=== PATIENT | female | born 1945 | race Caucasian/White ===

== ENCOUNTER 2017-03-09 09:52 | Day surgery (SDC) | payer MEDICARE, OTHER ==
[~2017-03-09] VITALS: Ht 170.2 cm; Wt 107.3 kg
--- NOTE | ~2017-03-09 | CATH ---
Cardiac Diagnostic Report Demographics Patient Name DELORES NDIAYE Gender Female R Date of 1945 Age 71 year(s) Patient Number [id number] Date of Study 03/09/2017 Visit Number [id number] Room Number Corporate ID Ht 175.26 cm Wt 111.58 kg Accession Number [id number] BSA 2.26 m kg/m Referring Kike Arreguin Primary Physician Physician A Performing Marina Soliman MD Secondary Physician Physician Diagnostic Marina Soliman MD Assisting Physician Physician Interventional Physician Silk Spotter Physician Findings and Conclusions Diagnostic Findings and Conclusion Normal coronary arteries. Normal LVEDP. Diagnostic Recommendations Medical management. Procedure Description The patient was brought to the diagnostic cardiac catheterization laboratory in the fasting, non-sedated state. Informed consent was obtained in the written and verbal form after the risks and benefits were explained. The patient had no further questions and agreed to proceed. The planned puncture-incision site(s) were clipped and prepped with ChloraPrep and draped in the usual sterile manner. Conscious sedation, supplemental oxygen, and pain control medications were delivered by a registered nurse under physician guidance. Surface ECG rhythm, blood pressure measurement, and pulse oximetry were monitored throughout the procedure. Arterial access. The right radial access site was infiltrated with lidocaine. The vessel was entered with the Seldinger technique. A 6F sheath was advanced into the vessel and used for catheter placement. Left heart catheterization. A JR4 catheter was advanced across the aortic valve to the left ventricle under fluoroscopic guidance. Resting hemodynamics were obtained. Selective right coronary angiography. A PRC catheter was advanced into the right coronary vessel ostium under fluoroscopic guidance. Contrast was injected by hand. Images were obtained in multiple projections. Selective left coronary angiography. A catheter was advanced into the left coronary vessel ostium under Fluoroscopic guidance. Contrast was injected by hand. Images were obtained in multiple projections. Hemostasis: The sheath was removed and a TR Band was placed. Hemostasis was achieved. The patient was transferred to a regular nursing floor via cart accompanied by a nurse. The patient left the laboratory in stable condition. Diagnostic Cath Status: Elective Procedure Procedure Type Diagnostic procedure:Angiography:, Coronary Angios w/[facility] Indications: Dyspnea, Hyperlipidemia, Hypertension, Diabetes, Positive Nuclear: Intermediate and Family history of coronary artery disease. The procedure was explained in detail to the patient. Risks, complications and alternative treatments were reviewed. Written consent was obtained. Medications Reviewed with Patient prior to Procedure. Complications: No Complication. Angiographic Findings Dominance: Left Cardiac Arteries and Lesion Findings LMCA: Normal (0% Stenosis). LAD: Normal (0% Stenosis). LCx: Normal (0% Stenosis). RCA: Normal (0% Stenosis). Procedure Data Procedure Date Date: 03/09/2017Start: 01:45 PMEnd: 02:16 PM Entry Locations - Percutaneous access was performed through the Right Radial artery (Primary location). A 6 Fr sheath was inserted. Hemostasis was successfully obtained using a TR band. Procedure Medications Order and Administration + + +-------+--------+ !Time !Medication !Dosage !Route ! + + +-------+--------+ 03/09/2017 !Oxygen !2 l/min!NC ! !01:42 PM ! ! ! ! + + +-------+--------+ 03/09/2017 !Versed !2 mg ! ! !01:42 PM ! ! ! ! + + +-------+--------03/09/2017 !Fentanyl !25 mcg !I.V. ! !01:42 PM ! ! ! ! + + +-------+--------+ !03/09/2017 !Sodium Chloride !10 ml !I.V. ! !01:43 PM ! ! ! ! + + +-------+--------+ !03/09/2017 !Versed !1 mg ! ! !01:43 PM ! ! ! ! + + +-------+--------+ !03/09/2017 !Oxygen !4 l/min!NC ! !01:45 PM ! ! ! ! + + +-------+--------+ !03/09/2017 !SF Radial Cocktail: 200mcg Nitro, 2.5 mg ! !I.A. ! !01:53 PM !Verapamil, 5000u Heparin ! ! ! + + +-------+--------+ !03/09/2017 !Versed !1 mg ! ! !02:01 PM ! ! ! ! + + +-------+--------+ !03/09/2017 !Fentanyl !25 mcg !I.V. ! !02:01 PM ! ! ! ! + + +-------+--------+ Devices Used - A6 FrCATH 6F FR4 CATHETER 100CMwas used for:LeftsideLV Pressures. - A6 FrCATH 6F PRC CATHETER 100CMwas used for:RightsideCoronary Angios. - A6 FrCATH 6FR FL3.5 CATHETER 100CMwas used for:LeftsideCoronary Angios. Contrast Material - Isovue 24647 ml Fluoroscopy Time: Diagnostic: 4:54 minutes. Total: 4:54 minutes. Fluoroscopy Dose: Diagnostic: 788 mGy. Total: 788 mGy. Estimated Blood Loss: 7 ml. Medical History Performed Procedures and Imaging Results - Stress testing with SPECT MPIwas performed on 02/01/2017. Results were: Positive. Risk/Extent of ischemia was: Intermediate risk. Allergies - Codiene. - Penicillin. - Sulfa. Risk Factors The patient risk factors include:peripheral arterial disease, treated hypercholesterolemia, treated hypertension, orally-treated diabetes mellitus, last creatinine: 2.4 mg/dl, creatinine clearance: 38.42 ml/min, dyslipidemia and Current/Recent(w/in 1 year) tobacco use. Admission Data Admission Date: 03/09/2017 Admission Time: 09:52 AM Insurance Payors: Medicare. Clinical Evaluation Leading to Procedure Diagnosed on 03/09/2017 12:00 AM. - The patient's CAD presentation was assessed as: Symptom unlikely to be ischemic. - There were no anginal symptoms. - The patient has been in a state of heart failure within the past two weeks. - The patient's heart failure status was assessed as NYHA Class II, with CHF symptoms of RAMOS. Hemodynamics Condition: Rest O2 Consumption: Estimated: 216.55Heart Rate: 80 bpm Pressures (mmHg) +-----+ + !Site !Pressure ! +-----+ + !LV !111/2 ,4 ! +-----+ + !LV !114/1 ,7 ! +-----+ + !AO !119/70 (92) ! +-----+ + !LV !120/1 ,9 ! +-----+ + !AO !114/73 (91) ! +-----+ + Valve Gradients and Areas + +---------+---------+---------+ +---------+ + !Valve !Peak !Mean !Area !Index !Flow !Source ! + +---------+---------+---------+ +---------+ + !Aortic !0 !0 ! ! ! ! ! + +---------+---------+---------+ +---------+ + !Aortic !0 !0 ! ! ! ! ! + +---------+---------+---------+ +---------+ + Shunts Oxygen Values O2 Consumption 216.55 Discharge Data Discharge Date: 03/09/2017 Hospital Status: Outpatient Signatures
[~2017-03-09 09:52] MED LIST: ACTOS DPS30 MG PO; ASA CHILDREN'S81 MG PO; ASCORBIC ACID500 MG PO; BACTROBAN OINT.22 GM TP; COUMADIN2.5 MG PO; FEOSOL-DPS325 MG PO; GLUCOSAMINE/CHO1 TAB PO; HUMALOG100 UNIT/1 SQ; LOPID DPS600 MG PO; LOTRISONE DPS45 GM TP; MAALOX DPS30 ML PO; MYCOSTATIN PWD15 GM TP; NORCO 5-325 TA1 EACH PO; NUCYNTA50 MG PO; NYSTATIN1 EAC1 TP; OCEAN NASAL MIS45 ML NS; PERCOCET 10-321 EACH PO; PRESERVISION A1 EAC2 PO; PRILOSEC DPS20 MG PO; PROCRIT10000 UNIT SQ; STIOLTO RESPIMAT4 GM IH; TAMBOCOR DPS50 MG PO; TYLENOL DPS325 MG PO; TYLENOL EXTRA500 M1 PO; VITAMIN D31000 UNI1 PO; VOLTAREN 1% GE100 GM TP; WELCHOL625 MG PO
[2017-04-13] MEDS ORDERED: LOPID DPS600 MG PO (17:04)
[2017-04-13] MEDS ORDERED: ACTOS DPS30 MG PO (17:05)
[2017-04-13] MEDS ORDERED: PRESERVISION A1 EAC1 PO (17:06)
[2017-04-13] MEDS ORDERED: VITAMIN C250 MG PO (17:06)
[2017-04-13] MEDS ORDERED: ASA CHILDREN'S81 MG PO (17:06)
[2017-04-13] MEDS ORDERED: CENTRUM SILVER1 EAC1 PO (17:07)
[2017-04-13] MEDS ORDERED: PRILOSEC DPS20 MG PO (17:07)
[2017-04-13] MEDS ORDERED: COUMADIN2.5 MG PO (17:07)
[2017-04-13] MEDS ORDERED: VITAMIN D-32000 UNI1 PO (17:07)
[2017-04-13] MEDS ORDERED: SOD BICARB TAB650 MG PO (17:08)
[2017-04-13] MEDS ORDERED: DUONEB DPS3 ML IH (17:09)
[2017-04-13] MEDS ORDERED: ROCALTROL DP0.25 MCG PO (17:09)
[2017-04-13] MEDS ORDERED: BACTROBAN OINT.22 GM TP (17:10)
[2017-04-13] MEDS ORDERED: AFRIN15 ML NS (17:10)
[2017-04-13] MEDS ORDERED: KENALOG OINT. 015 GM TP (17:11)
[2017-04-13] MEDS ORDERED: MYCOSTATIN PWD15 GM TP ×2 (17:11→17:14)
[2017-04-13] MEDS ORDERED: LOTRISONE CREAM45 GM TP (17:11)
[2017-04-13] MEDS ORDERED: NORCO 7.5-3251 EACH PO (17:12)
[2017-04-13] MEDS ORDERED: BUMEX DPS1 MG PO (17:12)
[2017-04-13] MEDS ORDERED: OCEAN NASAL MIS45 ML NS (17:12)
[2017-04-13] MEDS ORDERED: GLUCOPHAGE1000 MG PO (17:12)
[2017-04-13] MEDS ORDERED: FEOSOL-DPS325 MG PO (17:13)
[2017-04-13] MEDS ORDERED: LOPRESSOR DPS12.5 MG PO (17:13)
[2017-04-13] MEDS ORDERED: MAG-OX400 MG PO ×2 (17:13→17:14)
[2017-04-30] MEDS ORDERED: PRILOSEC DPS20 MG PO (18:09)
[2017-04-30] MEDS ORDERED: NORCO 7.5-3251 EACH PO (18:10)
[2017-04-30] MEDS ORDERED: ANTIFUNGAL15 GM TP (18:12)
[2017-04-30] MEDS ORDERED: COUMADIN6 MG PO (18:13)
[2017-04-30] MEDS ORDERED: CEFTIN DPS500 MG PO (18:14)
[2017-05-17] MEDS ORDERED: DELTASONE DPS1 MG PO (12:02)
[2017-05-17] MEDS ORDERED: MUCOMYST 20% IH (12:03)
[2017-05-19] MEDS ORDERED: TYLENOL DPS325 MG PO (14:57)
[2017-05-19] MEDS ORDERED: COLACE-DPS100 MG PO (14:58)
[2017-05-19] MEDS ORDERED: NORMAL SALINE FL5 ML IV (14:59)
[2017-07-25] MEDS ORDERED: BACTROBAN OINT.22 GM TP (19:12)
[2017-07-25] MEDS ORDERED: AFRIN-DPS15 ML NS (19:12)
[2017-07-25] MEDS ORDERED: BROVANA15 MCG/2 M IH (19:13)
[2017-07-25] MEDS ORDERED: BUMEX DPS1 MG PO (19:14)
[2017-07-25] MEDS ORDERED: KLOR-CON M2020 ME1 PO (19:15)
[2017-07-25] MEDS ORDERED: FEOSOL-DPS325 MG PO (19:15)
[2017-07-25] MEDS ORDERED: DUONEB DPS3 ML IH (19:15)
[2017-07-25] MEDS ORDERED: LOPRESSOR DPS50 MG PO (19:16)
[2017-07-25] MEDS ORDERED: LOTRISONE CREAM45 GM TP (19:17)
[2017-07-25] MEDS ORDERED: MAALOX DPS30 ML PO (19:17)
[2017-07-25] MEDS ORDERED: MUCINEX600 MG PO (19:18)
[2017-07-25] MEDS ORDERED: MAG-OX400 MG PO (19:18)
[2017-07-25] MEDS ORDERED: MYCOSTATIN PWD15 GM TP (19:19)
[2017-07-25] MEDS ORDERED: PRESERVISION A1 EAC2 PO (19:19)
[2017-07-25] MEDS ORDERED: PULMICORT0.5 MG/21 IH (19:19)
[2017-07-25] MEDS ORDERED: TRIAMCINOLONE A15 GM TP (19:20)
[2017-07-25] MEDS ORDERED: CALCIUM CARBON500 MG PO (19:21)
[2017-07-25] MEDS ORDERED: TYLENOL EXTRA500 M1 PO (19:21)
[2017-07-25] MEDS ORDERED: CENTRUM SILVER1 EAC1 PO (19:22)
[2017-07-25] MEDS ORDERED: ASA CHILDREN'S81 MG PO (19:22)
[2017-07-25] MEDS ORDERED: COUMADIN DPS3 MG PO ×2 (19:22→19:23)
[2017-07-25] MEDS ORDERED: VITAMIN C250 MG PO (19:23)
[2017-07-25] MEDS ORDERED: ZOFRAN4 MG PO (19:23)
[2017-07-25] MEDS ORDERED: HYDROCODON-ACE1 EAC4 PO (19:24)
[2017-07-25] MEDS ORDERED: PEPCID DPS20 MG PO (19:25)
[2017-07-25] MEDS ORDERED: ANALGESIC BALM30 GM TP (19:25)
[2017-07-25] MEDS ORDERED: SPORTS CREAM85 GM TP (19:26)
== END 2017-03-09 17:40 | disposition home or self-care (01) ==
LOC: SSS 09:52
PROC: 4A023N7 Measurement of Cardiac Sampling and Pressure, Left Heart, Percutaneous Approach (ICD-10-PCS; principal; 2017-03-09)
DX: R93.1 Abnormal findings on diagnostic imaging of heart and coronary circulation (principal); R06.00 Dyspnea, unspecified; I48.0 Paroxysmal atrial fibrillation; E78.5 Hyperlipidemia, unspecified; I73.9 Peripheral vascular disease, unspecified; E11.9 Type 2 diabetes mellitus without complications; M19.90 Unspecified osteoarthritis, unspecified site; E55.9 Vitamin D deficiency, unspecified; D64.9 Anemia, unspecified; F17.210 Nicotine dependence, cigarettes, uncomplicated; Z82.49 Family history of ischemic heart disease and other diseases of the circulatory system; Z88.0 Allergy status to penicillin; Z88.2 Allergy status to sulfonamides; Z88.5 Allergy status to narcotic agent; Z90.49 Acquired absence of other specified parts of digestive tract; Z98.51 Tubal ligation status; Z90.710 Acquired absence of both cervix and uterus; Z79.899 Other long term (current) drug therapy; Z98.890 Other specified postprocedural states

== ENCOUNTER 2017-04-05 08:50 | Inpatient (IN) | payer MEDICARE, OTHER ==
[~2017-04-05] VITALS: Ht 170.2 cm; Wt 107.7 kg
--- NOTE | ~2017-04-05 | ECH ---
Transthoracic Echocardiography Report (TTE) Demographics Patient Name ZELDA ESTRELLA Date of Study 04/06/2017 R Patient Number [id number] Visit Number [id number] Date of 1945 Room Number 403 Accession Number [id number] Gender Female Age 71 year(s) Referring Cheryl Agustin Radiographer Mammographer Amalia Romo [facility] Physician Kike Anderson Physician Interpreting Cheryl REYNOSO [employer] Intern Physician Vamsi Supervising Ordering Physician Joaquim Rawls MD/P Nurse Stress Lodging Facilities Manager Conclusions Contractility Score Summary Normal Left Ventricular contractility was noted. Summary Technically fair exam. The estimated left ventricular ejection fraction is 50-55% in underlying atrial fibrillation. The left ventricle is moderately dilated . Mild left ventricular hypertrophy. Diastolic function indeterminate due to patient's arrhythmia. The right atrium is mildly dilated. Mild mitral regurgitation by color Doppler. Mild tricuspid regurgitation by color Doppler. There is mild pulmonary hypertension. The pulmonary pressure (RVSP) is 41 mmHg. Recommendation The patient will be given the results of this study by the physician who ordered the exam. Procedure Type of Study TTE procedure:Echo Complete SF. Procedure Date Date: 04/06/2017 Start: 12:00 Technical Quality: Fair due to body habitus. Indications:Dyspnea with exertion, Congestive heart failure and Atrial fibrillation. Appropriate Use Criteria: 9 Height: 67 inches Weight: 264 pounds BSA: 2.28 m Rhythm: Atrial fibrillation HR: 64 bpm BP: 129/76 mmHg Allergies - Codiene. - Penicillin. - Sulfa. M-Mode/2D Measurements LV Diastolic Dimension: 5.92 cm LV Systolic Dimension: 5.2 cm LV Septum Diastolic: 0.94 cm LV PW Diastolic: 1.21 cm AO Root Dimension: 2.43 cm Cardiac Output: 2.78 l/min LA Dimension: 5.19 cm Cardiac Index: 1.22 l/min*m RV Diastolic Dimension: 4.22 cm LA volume index: 25 ml/m LVOT: 1.7 cm LVOT VTI: 19.14 cm RV Base: 4.1 cm LV Stroke volume: 43.42 ml RV Mid: 2.5 cm LV Stroke volume index: 19.04 ml/m RV Length: 6.5 cm TAPSE: 1.7 cm Doppler Measurements AV Peak Velocity: 1.46 m/s MV Peak E-Wave: 1.4 m/s AV Peak Gradient: 8.53 mmHg AV Mean Gradient: 5.25 mmHg LVOT Peak Velocity: 1.1 m/s AV Area (Continuity):1.49 cm PV Peak Velocity: 1.17 m/s TR Velocity:3.02 m/s PV Peak Gradient: 5.51 mmHg TR Gradient:36.46 mmHg Estimated PASP: 41.46 mmHg Estimated RAP:5 mmHg Estimated RVSP: 41 mmHg RA Area: 21.03 cm Findings Left Ventricle The left ventricle is moderately dilated . Mild left ventricular hypertrophy. Diastolic function indeterminate due to patient's arrhythmia. Right Ventricle Normal right ventricle structure and function. Left Atrium Normal left atrial size. Right Atrium The right atrium is mildly dilated. Mitral Valve Normal mitral valve structure and function. Mild mitral regurgitation by color Doppler. Aortic Valve The aortic valve is mildly sclerotic. Tricuspid Valve Normal tricuspid valve structure and function. Mild tricuspid regurgitation by color Doppler. There is mild pulmonary hypertension. The pulmonary pressure (RVSP) is 41 mmHg. Pulmonic Valve The pulmonic valve is not well visualized. Pericardial Effusion No evidence of pericardial effusion. Miscellaneous Visualized portions of the aortic root and ascending aorta appear normal in size. Pleural Effusion No evidence of pleural effusion. Contractility Score LV regional wall motion:(0-Non visualized 1-Normal 2-Hypokinesis 3-Akinesis 4-Dyskinesis 5-Aneurysm) Signature
--- NOTE | 2017-04-08 11:55 | CO ---
ADMIT: 04/05/2017 RM/LOC: 403 [facility] MR#: [id number] [address] [address] ZELDA EST[address]LLA [address] [address] Consultation SEX: F AGE: 71 : 1945 DATE OF CONSULTATION: 04/07/2017 ATTENDING PHYSICIAN: Kallie Stokes MD CONSULTING PHYSICIAN: Marlyn Busch MD REASON FOR CONSULTATION: Acute kidney injury and chronic kidney disease, stage 4. HISTORY OF PRESENT ILLNESS: The patient is a 71-year-old female, who has a history of chronic kidney disease, stage 4, with a baseline creatinine in the mid 2s recently. She has been having dyspnea for quite a few months now. In fact, she had a recent cardiac evaluation with a cardiac catheterization as well. She presented to the hospital 2 days ago with a chief complaint of nosebleeds and worsening dyspnea. Her functional status has been limited to just sitting in a chair. She denies any orthopnea or PND. She notes that, her weight has been going down at home. She was not on any diuretics as an outpatient, but she reports that, she has lost almost 20 pounds over the last 2 or 3 months. She was found to be in atrial fibrillation with RVR with an elevated PT/INR in the emergency room. She was given diuretics, and she had put out almost a liter and above her intake yesterday. Her creatinine has gone from 2.9 upon admission to 3 yesterday and 3.4 this morning. She denies any orthopnea. Denies any urinary complaints. Appetite remains poor. Her dyspnea is very severe. She can hardly walk. She has been seeing Hematology as an outpatient for anemia. They are supposed to see her today as well. She feels very weak. Denies any diarrhea. REVIEW OF SYSTEMS: A complete review of systems is negative in detail except as mentioned in the history of present illness above. PAST MEDICAL HISTORY: 1. Hypertension. 2. Uncontrolled type 2 diabetes mellitus. 3. Atrial fibrillation. 4. Ulcerative colitis, status post resection and ileostomy. 5. Vitamin B12 deficiency. 6. GERD. 7. Chronic kidney disease, stage 4. 8. Hypertension. 9. Osteoarthritis. 10.Dyslipidemia. 11.Total abdominal hysterectomy with bilateral salpingo-oophorectomy. 12.Cholecystectomy. 13.Appendectomy. 14.COPD. SOCIAL HISTORY: She is retired. Lives alone. Quit smoking in the year 2010. No alcohol or recreational drug use. ADMIT: 04/05/2017 RM/LOC: 403 [facility] MR#: [id number] [address] [place] [id number] [place] [address] Consultation SEX: F AGE: 71 : 1945 FAMILY HISTORY: No family history of chronic kidney disease or renal replacement therapy. ALLERGIES: PENICILLIN, CODEINE, AND SULFA. MEDICATIONS: Reviewed in the chart. PHYSICAL EXAMINATION: VITAL SIGNS: Temperature 97.4 Fahrenheit, pulse 66, blood pressure 121/73. GENERAL: She is sitting in a recliner and is comfortable. HEENT: Head is nontraumatic and normocephalic. Pale conjunctivae. Dry mucosa. CHEST: With bibasilar crackles. CARDIOVASCULAR SYSTEM: Irregular. No rubs, murmurs, or gallops. ABDOMEN: Soft. Ileostomy in place. EXTREMITIES: No lower extremity edema but she has presacral edema. NEUROLOGIC: Alert, awake, and oriented x3. She is able to move all extremities. PSYCHIATRIC: Affect and memory within normal limits. LABORATORY DATA: Reviewed. Trend of serum creatinine is outlined in the HPI above. She has azotemia with a BUN of 64. Potassium was 3.9, CO2 of 24, phosphorus 4. Magnesium 1.5. Hemoglobin 7.5. N-terminal proBNP upon admission was 28,943. IMAGING: Chest x-ray with persistent bilateral interstitial opacities with bilateral pleural effusions. ASSESSMENT AND PLAN: 1. Acute kidney injury on chronic kidney disease, stage 4 - This is likely prerenal in etiology. Her prerenal physiology is likely secondary to anemia, atrial fibrillation with rapid ventricular response, and diuretic use. This is indicated by her azotemia as well. This obviously makes it tough for us to diurese her without compromising her kidney function. 2. Congestive heart failure - She will eventually need diuretics hopefully if she remains clinically stable in the next 24 hours or so. 3. Anemia - Hematology has been consulted by Dr. Stokes. I will defer management to them. I wonder if she will need a blood transfusion because of her symptoms. 4. Renal osteodystrophy - She is on calcitriol. I will check an intact PTH ADMIT: 04/05/2017 RM/LOC: 403 [facility] MR#: [id number] [address] [place] [id number] [place] [address] Consultation SEX: F AGE: 71 : 1945 level. Overall, this is a tough clinical situation. As noted above, she will need diuretics, and with her current situation, it is likely, that will compromise her renal function. Hopefully, if her hemoglobin is better, it may alleviate some of her symptoms. I will look to start diuretics if she remains clinically stable. In the meantime, I will also check urine studies including urinalysis, microscopy, spot urine sodium, spot urine creatinine, and spot urine urea nitrogen. I will also check labs to evaluate her renal osteodystrophy. Thank you for this consultation. Please do not hesitate to contact with any questions. Marlyn Busch MD/ rebecca JOB #: [id number] CC: Kallie Stokes MD, Attending Physician Kallie Stokes MD, Family Physician
--- NOTE | 2017-04-08 13:05 | CO ---
ADMIT: 04/05/2017 RM/LOC: 403 [facility] MR#: [id number] [address] [address] NAJMA [address]RELLA [address] [place] [address] Consultation SEX: F AGE: 71 : 1945 DATE OF CONSULTATION: 04/06/2017 ATTENDING PHYSICIAN: Kallie Stokes MD CONSULTING PHYSICIAN: Vamsi Luna MD REASON FOR CONSULT: Atrial fibrillation. CHF. Altagracia Johnson RN, scribing for Dr. Vamsi Luna. HISTORY OF PRESENT ILLNESS: Najma is a pleasant 71-year-old female I have been asked to see in Cardiology consultation by Dr. March for atrial fibrillation with CHF. She follows regularly at [facility]. She follows with Dr. Jourdan Gray. She was last seen in clinic on March 19 of this year. She follows for history of paroxysmal atrial fibrillation, hypertension, hyperlipidemia, diabetes. She has peripheral vascular disease with carotid disease monitored closely with left internal carotid of 40 to 59%. Najma presented to [facility] and was admitted today for increased shortness of breath. She states that she had gotten to a point where walking across her room was difficult. She was requiring more oxygen than in the past. She does have history of COPD, oxygen dependent, but was finding that she needed it more often. She also has chronic anemia, but was having frequent nosebleeds about nearly every day and states that over the last 4-6 weeks, they have been getting more frequent. She states that her INR has been difficult to control, her INR on admission was 4.74. She also reports that she had recent infection, it sounds like kidney infection. She was on antibiotics, so she increased her oral intake of fluids at home too. She has some significant edema in her lower extremity and chest x-ray did show some fluid as well. She is also anemic, her hemoglobin today was 7.2, she reports it was around 10.2 not too long ago. She does follow with Oncology for her anemia and Nephrology for her kidney disease. Her baseline creatinine looks to be about 2 to 2.4, currently it is 3.0. Her proBNP is elevated at almost 29,000. PAST MEDICAL HISTORY: History of COPD, O2 dependent; paroxysmal atrial fibrillation; carotid stenosis; rectovaginal fistula; ulcerative colitis, status post ileostomy; type 2 diabetes; stage 4 chronic kidney disease; diabetic nephropathy; history of Brito cyst; history of renal cyst; vitamin B12 deficiency; chronic anemia; hyperlipidemia; chronic insomnia; gastroesophageal reflux disease; hypertension; history of elevated LFTs; cervical degenerative disease; pulmonary nodule. PAST SURGICAL HISTORY: Includes tubal ligation, hysterectomy, cholecystectomy, and ileostomy. ALLERGIES: CODEINE, SULFA, AND PENICILLIN. MEDICATIONS: Current medications include: ADMIT: 04/05/2017 RM/LOC: 403 [facility] MR#: [id number] [address] [place] [id number] NAJMA ESTRELLA [address] [place] [address] Consultation SEX: F AGE: 71 : 1945 1. Aspirin 81 daily. 2. Lopid 600 daily. 3. Protonix 40 daily. 4. Rocaltrol 0.25 Wednesday, Wednesday, and Wednesday. 5. Tambocor 50 p.o. b.i.d. 6. Multivitamin daily. 7. Tylenol 1000 p.o. daily. 8. DuoNeb inhalation q.i.d. 9. NovoLog sliding scale a.c. and at bedtime. FAMILY HISTORY: Noncontributory. SOCIAL HISTORY: Najma lives on her own. Her family is around to help her. She denies any tobacco, alcohol, or drug use. She denies any special diet. REVIEW OF SYSTEMS: GENERAL: Reports increased fatigue over the last 2 weeks. No recent fever, chills, or sweats. Her weight looks like it is up about 6 or 7 pounds. Denies any changes in vision or vision loss. THROAT, MOUTH, and EARS: Denies hearing loss or problems with nose, mouth or throat. RESPIRATORY: O2 dependent COPD, requiring increased oxygen use. Denies any hemoptysis. GASTROINTESTINAL: History of gastroesophageal reflux disease. Denies any trouble swallowing or current issues with GI bleeding. GENITOURINARY: Chronic kidney disease stage 4. MUSCULOSKELETAL: History of osteoarthritis. Denies any current muscle or joint pain. ENDOCRINE: Diabetes positive. Denies any thyroid issues. HEMATOLOGY: She has acute on chronic anemia worsened in hospital. She has had frequent nose bleeds. NEUROLOGIC: Denies chronic headaches, dizziness, syncope, stroke, seizures or numbness or tingling. PSYCHIATRIC: Denies history of mental illness or feelings of depression. PHYSICAL EXAMINATION: VITAL SIGNS: 115/61, heart rate 79, respirations 16, temperature 97.3, and oxygenation 92% on O2. SKIN: [place], warm and dry. EYES: Sclerae clear. No xanthelasmas. ENT: Oral mucosa is pink and moist. JVP difficult to visualize. HEART: Irregularly irregular. No murmurs, gallops, or rubs. RESPIRATORY: Distant breath sounds. ABDOMEN: Obese, nontender, nondistended. MUSCULOSKELETAL: Gait is normal. EXTREMITIES: Mild edema bilaterally. PSYCHIATRIC: Alert and oriented. Mood and affect are appropriate. DIAGNOSTIC DATA: Chest x-ray on 04/05 shows bilateral opacities and pleural effusions. Sodium 140, potassium 4.5, BUN 56, creatinine 3.0, glucose 125, ADMIT: 04/05/2017 RM/LOC: 403 [facility] MR#: [id number] [address] NAJMA ESTRELLA [address] [place] [address] Consultation SEX: F AGE: 71 : 1945 magnesium 1.7. CK 49, MB 2.2. Troponin less than 0.015 x3. ProBNP 28,943. INR 4.74. White blood cell count 6.8, hemoglobin 7.2, hematocrit 24.7, platelets 237. ASSESSMENT/PLAN: 1. Persistent atrial fibrillation. Given her heart failure and comorbidities, I would stopped her flecainide at this point. Her heart rate is controlled and she does not appear to have any symptoms from that. Her Coumadin is currently on hold with her elevated INR. I would stop aspirin at this point given her history of noose bleeds and a cardiac catheterization showing normal coronary arteries. 2. Acute heart failure, likely diastolic. I will start Lasix 80 mg IV x1 now. Check echocardiogram for any wall motion abnormalities, valvular abnormalities, or decreased ejection fraction. 3. Acute on chronic kidney disease, diuresis and watch renal function closely. 4. Epistaxis, chronic. Aspirin is held. Her INR is supratherapeutic currently. 5. Anemia, multifactorial. I will continue to follow her closely. Thank you for the consultation. I have read and agree with the documentation that has been completed regarding this visit. By signing this record, I attest that the documentation was completed in my physical presence and is an accurate record of the encounter. Altagracia Johnson RN / Vamsi Luna MD / rebecca JOB #: [id number] CC: Kallie Stokes MD, Attending Physician Kallie Stokes MD, Family Physician
--- NOTE | 2017-04-09 09:30 | HP ---
ADMIT: 04/05/2017 RM/LOC: 403 [facility] MR#: [id number] [address] [address] [place] [address] History and Physical SEX: F AGE: 71 : 1945 DATE OF SERVICE: CHIEF COMPLAINT: Shortness of breath and nosebleeds. HISTORY OF PRESENT ILLNESS: The patient is a very pleasant, 71-year-old female. She has a history of stage 4 chronic kidney disease, atrial fibrillation on chronic anticoagulation, diabetes mellitus type 2, and COPD that is oxygen dependent presented to the emergency room today with complaints of nosebleeds going on over the last couple of days but then also a couple of weeks of shortness of breath, progressively worse, especially worse about the last 4 days. Along with these nosebleeds that have been intermittent, she has had short of breath to the point where she is too short of breath to even get up and go to the bathroom at times. As mentioned increased fluid in ankle and lower calf edema. She notes she is a little bit more short of breath lying down flat. No chest pain or pressure is noted. No new palpitations have been noted. She notes she has had to turn her oxygen up a little bit recently as well. In the emergency room, she was found to have pulmonary edema and be in mild respiratory distress and with the epistaxis and these heart failure symptoms, she was admitted for further evaluation and treatment. PAST MEDICAL HISTORY: 1. Atrial fibrillation/flutter on chronic anticoagulation. 2. History of carotid stenosis. 3. Oxygen-dependent COPD with chronic hypoxic respiratory failure. 4. History of rectovaginal fistula. 5. History of ulcerative colitis, status post ileostomy. 6. Type 2 diabetes. 7. Stage 4 chronic kidney disease. 8. Diabetic nephropathy. 9. History of Brito's cyst. 10.History of hydradenitis suppurativa. 11.History of renal cyst. 12.B12 deficiency. 13.History of anemia. 14.Hyperlipidemia. 15.Chronic insomnia. 16.Status post tubal ligation. 17.Status post hysterectomy. 18.Status post cholecystectomy. 19.History of pulmonary nodule. 20.Cervical degenerative disease. 21.GERD. 22.Hypertension. 23.History of elevated LFTs. SOCIAL HISTORY: Currently lives by herself with some help from family. Currently nonsmoker and nondrinker. ALLERGIES: CODEINE, PENICILLINS, AND SULFA. ADMIT: 04/05/2017 RM/LOC: 403 [facility] MR#: [id number] [address] [address] [facility] [address] History and Physical SEX: F AGE: 71 : 1945 HOME MEDICATIONS: Include: 1. Ferrous sulfate. 2. Gemfibrozil. 3. Flecainide. 4. Pioglitazone. 5. Vitamin C. 6. PreserVision. 7. Aspirin. 8. Vitamin D. 9. Tylenol. 10.Omeprazole. 11.Centrum Silver. 12.Warfarin. 13.Sodium bicarb. 14.Calcitriol. 15.DuoNeb. 16.Mupirocin. 17.Lortab. 18.Afrin. 19.Lotrisone. 20.Nystatin. 21.Glucosamine. FAMILY HISTORY: Noncontributory. REVIEW OF SYSTEMS: As noted above. All systems reviewed and negative. PHYSICAL EXAMINATION: VITAL SIGNS: 96.7, 89, 32, 165/65, and 93% on room air. GENERAL: This is an obese female, appears stated age. No apparent distress. Alert and oriented x3. Cooperative with examination. HEENT: Normocephalic and atraumatic. Mucous membranes are moist. Posterior oropharynx shows no active bleeding or blood. Nares, no active bleeding is noted at this time. NECK: Supple. LUNGS: Diminished with rales at the bases, especially posterior. ABDOMEN: Soft, nontender, and nondistended. Positive bowel sounds throughout. EXTREMITIES: 1 to 2+ edema of feet, ankles, and calves bilaterally. NEUROLOGIC: Cranial nerves intact. No focal deficits noted. SKIN: Shows no obvious rashes today. LABORATORY DATA: Hemoglobin is 8.3, white count 6.2, and 216,000 platelets. Sodium 142, potassium 4.1, BUN is 46, creatinine of 2.9, with her baseline creatinine looks like it is around right at 2.0. CK 52, MB 2.6, troponin was less than 0.015. INR was 6. BNP was 28,943. Chest x-ray shows bilateral pulmonary opacities consistent with pulmonary edema. EKG really looks like ADMIT: 04/05/2017 RM/LOC: 403 [facility] MR#: [id number] [address] [place] [id number] [place] [address] History and Physical SEX: F AGE: 71 : 1945 atrial flutter to me. She is right at the 100. No acute changes noted. ASSESSMENT AND PLAN: 1. Dyspnea on exertion, volume overload consistent with congestive heart failure, past unknown ejection fraction. 2. Epistaxis with elevated INR, resolved. 3. Atrial fibrillation/atrial flutter on chronic anticoagulation. 4. Acute kidney injury on chronic kidney disease. 5. Chronic obstructive pulmonary disease with chronic hypoxic respiratory failure. 6. Diabetes mellitus type 2. 7. Anemia. At this time, the patient is feeling better. She has received some Lasix in the emergency room, and she had a good diuresis and she is feeling better. Oxygen requirements are stable. Right now, I do think all of her symptoms earlier from volume overload. She has already been diuresed today, we will watch her creatinine closely, because certainly she needs some diuresis. I will watch her on telemetry with serial cardiac enzymes, EKGs, and echocardiogram and likely have truck dispatcher see her. We will get her started back on her home medications, of course holding her aspirin and Coumadin for right now. We will humidify her oxygen and plan to use some nasal saline mist. As mentioned, we will continue with flecainide for right now. We will let her INR trend down and follow her closely as an inpatient. Curly March MD/ rebecca JOB #: [id number] CC: Kallie Stokes MD, Attending Physician Kallie Stokes MD, Family Physician
[2017-04-13] MEDS ORDERED: LOPID DPS600 MG PO (17:04)
[2017-04-13] MEDS ORDERED: ACTOS DPS30 MG PO (17:05)
[2017-04-13] MEDS ORDERED: ASA CHILDREN'S81 MG PO (17:06)
[2017-04-13] MEDS ORDERED: VITAMIN C250 MG PO (17:06)
[2017-04-13] MEDS ORDERED: PRESERVISION A1 EAC1 PO (17:06)
[2017-04-13] MEDS ORDERED: COUMADIN2.5 MG PO (17:07)
[2017-04-13] MEDS ORDERED: VITAMIN D-32000 UNI1 PO (17:07)
[2017-04-13] MEDS ORDERED: CENTRUM SILVER1 EAC1 PO (17:07)
[2017-04-13] MEDS ORDERED: PRILOSEC DPS20 MG PO (17:07)
[2017-04-13] MEDS ORDERED: SOD BICARB TAB650 MG PO (17:08)
[2017-04-13] MEDS ORDERED: ROCALTROL DP0.25 MCG PO (17:09)
[2017-04-13] MEDS ORDERED: DUONEB DPS3 ML IH (17:09)
[2017-04-13] MEDS ORDERED: AFRIN15 ML NS (17:10)
[2017-04-13] MEDS ORDERED: BACTROBAN OINT.22 GM TP (17:10)
[2017-04-13] MEDS ORDERED: MYCOSTATIN PWD15 GM TP ×2 (17:11→17:14)
[2017-04-13] MEDS ORDERED: KENALOG OINT. 015 GM TP (17:11)
[2017-04-13] MEDS ORDERED: LOTRISONE CREAM45 GM TP (17:11)
[2017-04-13] MEDS ORDERED: NORCO 7.5-3251 EACH PO (17:12)
[2017-04-13] MEDS ORDERED: OCEAN NASAL MIS45 ML NS (17:12)
[2017-04-13] MEDS ORDERED: BUMEX DPS1 MG PO (17:12)
[2017-04-13] MEDS ORDERED: GLUCOPHAGE1000 MG PO (17:12)
[2017-04-13] MEDS ORDERED: LOPRESSOR DPS12.5 MG PO (17:13)
[2017-04-13] MEDS ORDERED: MAG-OX400 MG PO ×2 (17:13→17:14)
[2017-04-13] MEDS ORDERED: FEOSOL-DPS325 MG PO (17:13)
--- NOTE | 2017-04-17 08:25 | ER ---
ADMIT: 04/05/2017 RM/LOC: 403 [facility] MR#: [id number] [address] [address] ZELDA ESTRELLA [address] [address] Emergency Room Report SEX: F AGE: 71 : 1945 DATE: 04/05/2017 ADDENDUM: This patient comes into the ER because she has had a nosebleed all day on and off. She is concerned that her hemoglobin may be low because it has been constant. On physical exam, she does not have a nose bleed at this time, but it was noted that she is quite short of breath during our history and physical so much so that she will have to stop to take breather. She states this has been going on for the last 4 days and that she is weak and feels tired all the time. Her lungs did have decreased air movement. When I look in her nose, I could see clotted blood, but no active bleeding at this time. Her hemoglobin was 8.3, BUN 46, creatinine 2.9. Her chest x-ray showed CHF and her BNP was 20,000. I did consult with Dr. Hicks concerning treatment of this patient. She was given initially with shortness of breath 15 mg of Decadron IM and then later received Lasix 60 mg IV. I spoke with Dr. March's, who was on-call for Dr. Stokes and we will admit this patient. DIAGNOSES: 1. Congestive heart failure. 2. Anemia. 3. Nosebleed. 4. Renal insufficiency. Please see my T-sheet. SERGE Lares / Manoj Hicks MD / rebecca JOB #: [id number] CC: Kallie Stokes MD, Attending Physician Kallie Stokes MD, Family Physician
--- NOTE | 2017-04-23 10:58 | CO ---
ADMIT: 04/05/2017 RM/LOC: 403 [facility] MR#: [id number] [address] [address] ZELDA ESTRELLA [address] [place] [id number] Consultation SEX: F AGE: 71 : 1945 DATE OF CONSULTATION: 04/07/2017 ATTENDING PHYSICIAN: Kallie Stokes MD CONSULTING PHYSICIAN: Sherman Sanchez MD REASON FOR HEMATOLOGY CONSULTATION: Anemia. HISTORY OF PRESENT ILLNESS: Mrs. Estrella is a 71-year-old, pleasant woman was admitted to the hospital because of the constant nose bleed. On the workup, she was found to have a fluid overload in her chest. She was extremely short of breath; therefore, she was admitted for further management. Hematology was consulted because of her anemia. Her hemoglobin count yesterday was 7.2 and then went up to 7.5, and she was extremely short of breath. No nausea, no vomiting, and no diarrhea. She is being considered for using Lasix for further diuresis. She does also have an acute kidney injury with a creatinine of 3.5. She used to run creatinine of around 2 to 2.4 in the past. She denies any fever, denies any diarrhea. She does have shortness of breath. She is on oxygen. PAST MEDICAL HISTORY: Anemia of chronic disease likely from renal insufficiency and chronic kidney disease. ALLERGIES: SHE IS ALLERGIC TO SULFA, CODEINE, SULFATE, AND PENICILLIN. SOCIAL HISTORY: She is currently not a smoker and not a drinker. FAMILY HISTORY: Breast cancer in the family and high blood pressure in the family. MEDICATIONS: She takes: 1. Lotrisone. 2. Vitamin D3. 3. COPD treatment like Atrovent pump and triamcinolone. Please follow medication reconciliation list for complete. REVIEW OF SYMPTOMS: GENERAL: In mild distress due to shortness of breath. CARDIOVASCULAR: No chest pain. RESPIRATORY: Mild shortness of breath. GASTROINTESTINAL: No nausea. No vomiting. No diarrhea. GENITOURINARY: No urgency. No frequency. ENDOCRINOLOGY: No polyuria. No polydipsia. MUSCULOSKELETAL: No muscle pain. SKIN: No rash. INFECTION: No fever. NUTRITION: Adequate. PHYSICAL EXAMINATION: VITAL SIGNS: Temperature 98.2, pulse is 67, ADMIT: 04/05/2017 RM/LOC: 403 [facility] MR#: [id number] [address] [address] [place] [address] Consultation SEX: F AGE: 71 : 1945 respirations 16, and blood pressure 132/69. HEENT: Normocephalic and atraumatic. LUNGS: Clear. HEART: S1, S2 heard. Regular rate and rhythm. ABDOMEN: Soft, nontender, nondistended. Positive bowel sounds. EXTREMITIES: No edema. NEUROLOGIC: Awake, alert, and oriented x3. LYMPHATICS: No abnormal lymph node palpated. SKIN: No rash. LABORATORY DATA: On her blood count; WBC is 7.7, hemoglobin 7.5, and platelets 251 with acute kidney injury on chronic kidney issue. Her creatinine is 3.4. Normal LFTs and magnesium 1.5. IMPRESSION AND RECOMMENDATIONS: Mrs. Estrella is a 71-year-old, pleasant woman was well known to me. She follows up with me in the clinic for her anemia likely from her chronic renal insufficiency, was given Procrit for her anemia, was admitted due to nosebleed and found to have pulmonary edema. Very short of breath. Hemoglobin dropped to 7.7. Anemia of chronic disease due to renal insufficiency due to her nose bleed as well as shortness of breath. Probably, she will need a transfusion of 2 units of prbc's. She has symptomatic anemia. I will give her Lasix 20 mg in between the transfusions. She also has bleeding; therefore, it is very important to correct her hemoglobin count. She also has a heart failure kind of symptoms where her BNPs are extremely increased. She will benefit from maintaining her hemoglobin count at least 9 or above. I have also ordered some anemia workup. We will follow up that. She probably will need diuresis, which will be taken care by Dr. Stokes and Dr. Busch. Her kidney injury has slightly worsened. Hot Shot, Dr. Busch on board. Thank you for your consultation and opportunity in taking care of your patient. I will follow up the patient with you. Sherman Sanchez MD/ rebecca JOB #: [id number] CC: Kallie Stokes MD, Attending Physician Kallie Stokes MD, Family Physician
[2017-04-30] MEDS ORDERED: PRILOSEC DPS20 MG PO (18:09)
[2017-04-30] MEDS ORDERED: NORCO 7.5-3251 EACH PO (18:10)
[2017-04-30] MEDS ORDERED: ANTIFUNGAL15 GM TP (18:12)
[2017-04-30] MEDS ORDERED: COUMADIN6 MG PO (18:13)
[2017-04-30] MEDS ORDERED: CEFTIN DPS500 MG PO (18:14)
[2017-05-17] MEDS ORDERED: DELTASONE DPS1 MG PO (12:02)
[2017-05-17] MEDS ORDERED: MUCOMYST 20% IH (12:03)
[2017-05-19] MEDS ORDERED: TYLENOL DPS325 MG PO (14:57)
[2017-05-19] MEDS ORDERED: COLACE-DPS100 MG PO (14:58)
[2017-05-19] MEDS ORDERED: NORMAL SALINE FL5 ML IV (14:59)
--- NOTE | 2017-05-27 00:06 | DS ---
ADMIT: 04/05/2017 RM/LOC: 403 [facility] MR#: [id number] [address] [address] NAJMA ESTRELLA [address] [place] [address] Discharge Summary SEX: F AGE: 71 : 1945 ADMISSION DATE: 04/05/2017 DISCHARGE DATE: 04/12/2017 DIAGNOSES: 1. Congestive heart failure-acute diastolic. 2. Epistaxis. 3. Elevated INR (international normalized ratio). 4. Atrial fibrillation/flutter-Coumadin. 5. Chronic kidney disease with acute kidney injury. 6. COPD (chronic obstructive pulmonary disease). 7. Chronic hypoxic respiratory failure. 8. History of ulcerative colitis, status post ostomy. 9. Anemia NOS (not otherwise specified). 10.Hypomagnesium. PROCEDURES: 1. Echocardiogram 04/06/2017. 2. PRBC x2. CONSULTS: 1. FERNANDO. 2. Oncology. 3. Nephrology. REASON FOR HOSPITALIZATION: Shortness of breath. See dictated H and P. LABORATORY AND X-RAY DATA: White blood count 7.1, hemoglobin final 9.9, did get down to 7.2 and 7.5, on different occasions. INR on admission was 6, final one was 1.31. Urine see chart. Sodium 137, potassium 4, chloride 99, CO2 26, BUN 81, creatinine 3.3, glucose 95 and variable, calcium 8.6, magnesium 1.4 up to 1.6. ProBNP 58810. CPK x3 is 49, 52 and 54 respectively. Troponins all less than 0.015. Blood sugars available. Ferritin 582. PTH intact was 124. Chest x-ray on admission with bilateral pulmonary opacities and pleural effusions. Edema versus infection. Echo 04/06/2017 EF 50-55%. Diastolic dysfunction. COURSE IN HOSPITAL: Najma was admitted through the emergency room. Not feeling very well. She was placed on telemetry. Serial EKGs and enzymes were obtained. Unremarkable. Accu-Cheks were monitored. She has had chronic atrial fibrillation and seemed to be going into congestive heart failure a little more easily. Cardiology was asked to follow along. Echo was ordered to see if anything had changed from her last one that would assist with management of her medications. Echo was obtained and as above. Cardiology had her stop the flecainide which she was taking at that time, and also stopped her aspirin. Lasix was given at 80 mg intravenously. Her metoprolol was started at 12.5 b.i.d. Her renal function maintained which was good. She continued to be pretty short of breath. Epistaxis resolved. INR came down naturally. Oncology was asked to follow along because of her persistent anemia that was actually worsening a little bit. She has been worked up ADMIT: 04/05/2017 RM/LOC: 403 [facility] MR#: [id number] [address] [place] [id number] NAJMA ESTRELLA R [address] [place] [address] Discharge Summary SEX: F AGE: 71 : 1945 extensively over the last few years. Just wondered if there was anything else we were going to do differently. She did lose quite a bit with her epistaxis this admission so that might explain some of the things. Dr. Busch did follow along also with her worsening renal function. Her rate continued to be controlled with her atrial fibrillation and medications. On 04/10, she was felt to have improved enough with her diuresis that they changed her from IV Lasix to her oral Bumex but did twice daily initially. She started to have an increase in her creatinine so they backed down to one a day. Restarted her hydrocodone due to some of her pain. We added EzPAP due to persistent crackles and shortness of breath. She was feeling much improved. She improved enough that she was felt ready to go home. On 04/12/2017, she was dismissed. DISCHARGE MEDICATIONS: 1. Oxygen. 2. Bumex 1 mg daily. 3. Coumadin 2.5 mg daily. 4. Iron 325 daily. 5. Lopid 600 daily at 1600. 6. Lopressor 12.5 b.i.d. 7. Mag oxide 400, two in the morning, one in the evening. 8. Omeprazole 20 daily. 9. Rocaltrol 0.25 Wednesday, Wednesday, Wednesday. 10.PreserVision b.i.d. 11.DuoNeb q.i.d. 12.Nystatin powder b.i.d. 13.[place] p.r.n. 14.Vitamin C 250 twice daily with iron. 15.Aspirin 81 mg daily. 16.Vitamin D3 2000 international units daily. 17.Centrum Silver daily. 18.Bactroban t.i.d. p.r.n. 19.Hydrocodone 7.5, 1-2 every six p.r.n. 20.Afrin p.r.n. nosebleed. 21.Triamcinolone p.r.n. ADMIT: 04/05/2017 RM/LOC: 403 [facility] MR#: [id number] [address] [address] [place] [address] Discharge Summary SEX: F AGE: 71 : 1945 22.Lotrisone p.r.n. 23.Glucosamine p.r.n. DISCHARGE INSTRUCTIONS: She will have a pro-time and INR on 04/14/2017. She is to see FERNANDO, oncology and nephrology at planned appointments. She will then see me in 1-2 weeks. Overall, she is improved. Time spent 35 minutes. Kallie Stokes MD/ jeannine JOB #: [id number] CC: Kallei Stokes MD, Attending Physician Kallie Stokes MD, Family Physician MD Vamsi Coronado MD Dron Gauchan, MD
[2017-07-25] MEDS ORDERED: AFRIN-DPS15 ML NS (19:12)
[2017-07-25] MEDS ORDERED: BACTROBAN OINT.22 GM TP (19:12)
[2017-07-25] MEDS ORDERED: BROVANA15 MCG/2 M IH (19:13)
[2017-07-25] MEDS ORDERED: BUMEX DPS1 MG PO (19:14)
[2017-07-25] MEDS ORDERED: DUONEB DPS3 ML IH (19:15)
[2017-07-25] MEDS ORDERED: FEOSOL-DPS325 MG PO (19:15)
[2017-07-25] MEDS ORDERED: KLOR-CON M2020 ME1 PO (19:15)
[2017-07-25] MEDS ORDERED: LOPRESSOR DPS50 MG PO (19:16)
[2017-07-25] MEDS ORDERED: LOTRISONE CREAM45 GM TP (19:17)
[2017-07-25] MEDS ORDERED: MAALOX DPS30 ML PO (19:17)
[2017-07-25] MEDS ORDERED: MUCINEX600 MG PO (19:18)
[2017-07-25] MEDS ORDERED: MAG-OX400 MG PO (19:18)
[2017-07-25] MEDS ORDERED: PULMICORT0.5 MG/21 IH (19:19)
[2017-07-25] MEDS ORDERED: PRESERVISION A1 EAC2 PO (19:19)
[2017-07-25] MEDS ORDERED: MYCOSTATIN PWD15 GM TP (19:19)
[2017-07-25] MEDS ORDERED: TRIAMCINOLONE A15 GM TP (19:20)
[2017-07-25] MEDS ORDERED: CALCIUM CARBON500 MG PO (19:21)
[2017-07-25] MEDS ORDERED: TYLENOL EXTRA500 M1 PO (19:21)
[2017-07-25] MEDS ORDERED: CENTRUM SILVER1 EAC1 PO (19:22)
[2017-07-25] MEDS ORDERED: ASA CHILDREN'S81 MG PO (19:22)
[2017-07-25] MEDS ORDERED: COUMADIN DPS3 MG PO ×2 (19:22→19:23)
[2017-07-25] MEDS ORDERED: ZOFRAN4 MG PO (19:23)
[2017-07-25] MEDS ORDERED: VITAMIN C250 MG PO (19:23)
[2017-07-25] MEDS ORDERED: HYDROCODON-ACE1 EAC4 PO (19:24)
[2017-07-25] MEDS ORDERED: ANALGESIC BALM30 GM TP (19:25)
[2017-07-25] MEDS ORDERED: PEPCID DPS20 MG PO (19:25)
[2017-07-25] MEDS ORDERED: SPORTS CREAM85 GM TP (19:26)
== END 2017-04-12 13:13 | disposition home or self-care (01) | DRG 291 ==
LOC: ER 08:50 → 4PCU 11:37
PROVIDERS: ADMIT Internal Medicine
PROC: 30233N1 Transfusion of Nonautologous Red Blood Cells into Peripheral Vein, Percutaneous Approach (ICD-10-PCS; principal; 2017-04-07)
DX: I13.0 Hypertensive heart and chronic kidney disease with heart failure and stage 1 through stage 4 chronic kidney disease, or unspecified chronic kidney disease (principal); I50.33 Acute on chronic diastolic (congestive) heart failure; N18.4 Chronic kidney disease, stage 4 (severe); J96.11 Chronic respiratory failure with hypoxia; E11.22 Type 2 diabetes mellitus with diabetic chronic kidney disease; N17.9 Acute kidney failure, unspecified; I48.1 Persistent atrial fibrillation; D62 Acute posthemorrhagic anemia; K51.90 Ulcerative colitis, unspecified, without complications; I48.92 Unspecified atrial flutter; Z68.41 Body mass index [BMI] 40.0-44.9, adult; R04.0 Epistaxis; I48.0 Paroxysmal atrial fibrillation; D63.1 Anemia in chronic kidney disease; M19.90 Unspecified osteoarthritis, unspecified site; I73.9 Peripheral vascular disease, unspecified; E83.42 Hypomagnesemia; N25.0 Renal osteodystrophy; J44.9 Chronic obstructive pulmonary disease, unspecified; Z99.81 Dependence on supplemental oxygen; I65.29 Occlusion and stenosis of unspecified carotid artery; E66.9 Obesity, unspecified; E78.5 Hyperlipidemia, unspecified; F51.04 Psychophysiologic insomnia; M50.30 Other cervical disc degeneration, unspecified cervical region; K21.9 Gastro-esophageal reflux disease without esophagitis; Z79.82 Long term (current) use of aspirin; Z79.01 Long term (current) use of anticoagulants; Z93.2 Ileostomy status

== ENCOUNTER 2017-07-18 22:17 | Inpatient (IN) | payer MEDICARE, OTHER ==
[~2017-07-18 22:17] MED LIST changes: +AFRIN15 ML NS; +ANTIFUNGAL15 GM TP; +BUMEX DPS1 MG PO; +CEFTIN DPS500 MG PO; +CENTRUM SILVER1 EAC1 PO; +COLACE-DPS100 MG PO; +COUMADIN6 MG PO; +DELTASONE DPS1 MG PO; +DUONEB DPS3 ML IH; +GLUCOPHAGE1000 MG PO; +KENALOG OINT. 015 GM TP; +LOPRESSOR DPS12.5 MG PO; +LOTRISONE CREAM45 GM TP; +MAG-OX400 MG PO; +MUCOMYST 20% IH; +NORCO 7.5-3251 EACH PO; +NORMAL SALINE FL5 ML IV; +PRESERVISION A1 EAC1 PO; +ROCALTROL DP0.25 MCG PO; +SOD BICARB TAB650 MG PO; +VITAMIN C250 MG PO; +VITAMIN D-32000 UNI1 PO
[2017-07-25] MEDS ORDERED: BACTROBAN OINT.22 GM TP (19:12)
[2017-07-25] MEDS ORDERED: AFRIN-DPS15 ML NS (19:12)
[2017-07-25] MEDS ORDERED: BROVANA15 MCG/2 M IH (19:13)
[2017-07-25] MEDS ORDERED: BUMEX DPS1 MG PO (19:14)
[2017-07-25] MEDS ORDERED: DUONEB DPS3 ML IH (19:15)
[2017-07-25] MEDS ORDERED: FEOSOL-DPS325 MG PO (19:15)
[2017-07-25] MEDS ORDERED: KLOR-CON M2020 ME1 PO (19:15)
[2017-07-25] MEDS ORDERED: LOPRESSOR DPS50 MG PO (19:16)
[2017-07-25] MEDS ORDERED: LOTRISONE CREAM45 GM TP (19:17)
[2017-07-25] MEDS ORDERED: MAALOX DPS30 ML PO (19:17)
[2017-07-25] MEDS ORDERED: MUCINEX600 MG PO (19:18)
[2017-07-25] MEDS ORDERED: MAG-OX400 MG PO (19:18)
[2017-07-25] MEDS ORDERED: PRESERVISION A1 EAC2 PO (19:19)
[2017-07-25] MEDS ORDERED: PULMICORT0.5 MG/21 IH (19:19)
[2017-07-25] MEDS ORDERED: MYCOSTATIN PWD15 GM TP (19:19)
[2017-07-25] MEDS ORDERED: TRIAMCINOLONE A15 GM TP (19:20)
[2017-07-25] MEDS ORDERED: CALCIUM CARBON500 MG PO (19:21)
[2017-07-25] MEDS ORDERED: TYLENOL EXTRA500 M1 PO (19:21)
[2017-07-25] MEDS ORDERED: CENTRUM SILVER1 EAC1 PO (19:22)
[2017-07-25] MEDS ORDERED: ASA CHILDREN'S81 MG PO (19:22)
[2017-07-25] MEDS ORDERED: COUMADIN DPS3 MG PO ×2 (19:22→19:23)
[2017-07-25] MEDS ORDERED: VITAMIN C250 MG PO (19:23)
[2017-07-25] MEDS ORDERED: ZOFRAN4 MG PO (19:23)
[2017-07-25] MEDS ORDERED: HYDROCODON-ACE1 EAC4 PO (19:24)
[2017-07-25] MEDS ORDERED: PEPCID DPS20 MG PO (19:25)
[2017-07-25] MEDS ORDERED: ANALGESIC BALM30 GM TP (19:25)
[2017-07-25] MEDS ORDERED: SPORTS CREAM85 GM TP (19:26)
== END 2017-07-23 14:30 | DRG 439 ==
DX: K85.90 Acute pancreatitis without necrosis or infection, unspecified (principal); N17.9 Acute kidney failure, unspecified; E11.40 Type 2 diabetes mellitus with diabetic neuropathy, unspecified; E11.22 Type 2 diabetes mellitus with diabetic chronic kidney disease; B37.49 Other urogenital candidiasis; I48.91 Unspecified atrial fibrillation; E87.1 Hypo-osmolality and hyponatremia; I12.9 Hypertensive chronic kidney disease with stage 1 through stage 4 chronic kidney disease, or unspecified chronic kidney disease; Z99.81 Dependence on supplemental oxygen; D63.1 Anemia in chronic kidney disease; J44.9 Chronic obstructive pulmonary disease, unspecified; E86.0 Dehydration; E87.6 Hypokalemia; M25.562 Pain in left knee; M25.561 Pain in right knee; N18.9 Chronic kidney disease, unspecified; I45.10 Unspecified right bundle-branch block; M50.30 Other cervical disc degeneration, unspecified cervical region; K21.9 Gastro-esophageal reflux disease without esophagitis; E78.5 Hyperlipidemia, unspecified; G47.00 Insomnia, unspecified; I65.29 Occlusion and stenosis of unspecified carotid artery; Z93.2 Ileostomy status; Z79.01 Long term (current) use of anticoagulants